=== PATIENT | female | born 1965 | race Caucasian/White ===

== ENCOUNTER 2020-12-13 19:01 | Emergency (ER) | payer OTHER ==
[~2020-12-13] VITALS: Ht 162.6 cm; Wt 53.5 kg
[2020-12-13] MEDS ORDERED: ESTROGEN (19:28)
[2020-12-13] MEDS ORDERED: CRESTOR10 MG PO (19:28)
[2020-12-13] MEDS ORDERED: VITAMIN D3 (19:29)
[2020-12-13 20:12] LABS: ABSOLUTE BASOPHILS 0.1 thou/uL (0.0-0.2); ABSOLUTE LYMPHOCYTES 1.3 thou/uL (0.8-5.3); ABSOLUTE MONOCYTES 0.8 thou/uL (0.0-1.2); ABSOLUTE NEUTROPHILS 9.5 thou/uL (1.6-8.1); BASOPHILS 0.6 %; EOSINOPHILS 0.2 %; HEMATOCRIT 46.2 % (37.0-47.0); HEMOGLOBIN 15.7 gm/dL (12.0-15.0); LYMPHOCYTES 11.3 %; MCH 30.2 pg (26.0-34.0); MCHC 34.1 g/dL (28.0-37.0); MCV 88.6 fL (80.0-100.0); MONOCYTES 6.5 %; MPV 8.1 fl. (7.2-11.1); NUCLEATED RBCS 0 /100WBC; PLATELET COUNT* 216 thou/uL (150-400); POLYS 81.4 %; RBC 5.22 mil/uL (4.20-5.00); RDW-CV 14.2 % (10.5-14.5); WBC 11.6 thou/uL (4.0-11.0)
[2020-12-13 20:15] LABS: CREATININE 0.7 mg/dL (0.6-1.3); POTASSIUM 3.5 mmol/L (3.5-5.1)
[2020-12-13 20:19] LABS: MAGNESIUM 1.9 mg/dL (1.8-2.4); TOTAL BILIRUBIN 0.3 mg/dL (<0.1-1.0); TOTAL PROTEIN 5.3 g/dL (6.4-8.2)
[2020-12-13 21:26] LABS: URINE BILIRUBIN NEGATIVE (Negative); URINE BLOOD NEGATIVE (Negative); URINE CLARITY CLEAR; URINE COLOR YELLOW; URINE GLUCOSE-RANDOM NEGATIVE (Negative); URINE KETONES 2+ (Negative); URINE LEUKOCYTES-REFLEX NEGATIVE (Negative); URINE NITRITE-REFLEX NEGATIVE (Negative); URINE PROTEIN NEGATIVE (Negative); URINE UROBILINOGEN 0.2 E.U./dl (0.2-1.0)
[2020-12-13 22:00] VITALS: BP 112/74
--- NOTE | 2020-12-14 09:16 | EKG ---
[place] [address] ELECTROCARDIOGRAM REPORT Name: GER AHUJA Room: [facility]#: [id number] Admission: 12/13/20 Attend Phys: Discharge: 12/13/20 Date of : 67 Date of Service: 12/13/201933 Report #: [id number] THIS REPORT FOR: //name// [facility] ED Test Date: 2020-12-13 Test Time: 19:34:53 Pat Name: GER AHUJA Department: Room: Gender: F Video Engineer: [place] : 1965 Requested By: Tresa Lund Order Number: [id number] MD: Dm Jj Measurements Intervals [place] Rate: 56 P: 65 PA: 131 QRS: 44 QRSD: 184 T: 41 QT: 444 QTc: 429 Interpretive Statements Sinus rhythm Nonspecific intraventricular conduction delay No previous ECG available for comparison Electronically Signed On 12-14-2020 9:16:29 CDT by Dm Jj [email or web address] <ELECTRONICALLY SIGNED> By: Shanice Jj MD, [facility] 12/14/20915 33 33 Shanice Jj MD, [facility] /EPI
== END 2020-12-13 22:22 | disposition home or self-care (01) ==
LOC: M.ERS 19:01
PROVIDERS: Personal Emergency Response Attendant
DX: E86.0 Dehydration (principal); R55 Syncope and collapse